=== PATIENT | female | born 1970 | race African-American/Black ===

== ENCOUNTER 2018-02-07 10:02 | Emergency (ER) | payer SELFPAY | END 2018-02-07 10:33 | disposition home or self-care (01) | LOC: BURERS 10:02 | DX: J06.9 Acute upper respiratory infection, unspecified (principal); I10 Essential (primary) hypertension; Z79.899 Other long term (current) drug therapy | CPT/HCPCS: 99283 ==

== ENCOUNTER 2019-08-10 13:48 | Outpatient (CLI) | payer OTHER ==
--- NOTE | 2019-08-10 14:30 | RAD ---
EXAM: 3 views of the lumbosacral spine HISTORY: Low back pain and left leg pain COMPARISON: None FINDINGS: 3 views of the lumbosacral spine shows normal height and alignment of the vertebral bodies and intervertebral discs without fracture or subluxation. No significant degenerative changes are seen. The sacroiliac joints are unremarkable. IMPRESSION: No significant lumbar spine abnormality.
== END 2019-08-10 13:49 | disposition home or self-care (01) ==
LOC: BURRAD 13:48
PROVIDERS: ATTEND Physician Assistant
DX: M54.31 Sciatica, right side (principal); M79.605 Pain in left leg; R29.898 Other symptoms and signs involving the musculoskeletal system
CPT/HCPCS: 72100

== ENCOUNTER 2019-12-20 19:57 | Emergency (ER) | payer OTHER ==
[2019-12-20] MEDS ORDERED: Aspirin Chewable 81 MG TAB ONE (20:18)
[2019-12-20 20:28] LABS: #Basophils 0.2 thou/uL (0.0-0.2); #Eosinphils 0.3 thou/uL (0.0-0.7); #Lymphocytes 3.2 thou/uL (1.20-3.40); #Monocytes 0.8 thou/uL (0.11-0.59); #Neutrophils 4.2 thou/uL (1.40-6.50); %Basophils 1.9 % (0.0-1.0); %Eosinophils 3.3 % (0.0-10.0); %Lymphocytes 37.1 % (21.0-51.0); %Monocytes 9.3 % (0.0-10.0); %Neutrophils 48.4 % (42.0-75.0); Hemoglobin 14.2 g/dL (12.0-16.0); Mean Corpuscular HGB CONC 30.3 g/dL (32.0-36.0); Mean Corpuscular Hemoglobin 28.3 pg (27.0-31.0); Mean Corpuscular Volume 93.4 fL (78.0-98.0); Mean Platelet Volume 8.7 fL (7.4-10.4); Platelet Count 167 thou/uL (130-400); RBC Distribution Width 14.4 % (11.5-14.5); Red Blood Cell (RBC) Count 5.02 mill/uL (4.20-5.40); White Blood Cell (WBC) Count 8.7 thou/uL (4.8-10.8)
[2019-12-20 20:47] LABS: ALT (SGPT) 21 U/L (8-55); AST (SGOT) 17 U/L (5-34); Alkaline Phosphatase 77 U/L (40-110); Anion Gap 16 mmol/L (10-20); BUN (Urea Nitrogen) 22 mg/dL (7.0-18.7); Bilirubin, Total Less than 0.2 mg/dL (0.2-1.2); Calc. Creatinine Clearance 0 mL/min (70-130); Carbon Dioxide 22 mmol/L (22-29); Chloride 107 mmol/L (98-107); Estimated GFR-MDRD 64; Globulin 3.6 g/dL (2.4-3.5); Glucose 93 mg/dL (70-105); Lipase 53 U/L (8-78); Potassium 4.2 mmol/L (3.5-5.1); Protein, Total 7.6 g/dL (6.0-8.3); Sodium 141 mmol/L (136-145)
[2019-12-20] MEDS ORDERED: Ondansetron ODT 4 MG TAB ONE (20:50)
[2019-12-20] MEDS ORDERED: Ketorolac Tromethamine 30 MG/ML VIAL ONE (21:27)
[2019-12-20] MEDS ORDERED: traMADol HCl 50 MG TAB ONE (21:27)
--- NOTE | 2019-12-21 07:44 | RAD ---
PORTABLE CHEST: DATE: 12/20/2019. FINDINGS: An AP portable film at 2018 is compared with a 10/26/2015 study. The portable technique and body habitus yield a low-sensitivity study. Allowing for this, the heart seems normal in size and the lungs are clear. No gross lobar infiltrate or effusion was seen. There is no vascular congestion or edema. IMPRESSION: No acute finding. POS: HOME
== END 2019-12-20 21:39 | disposition home or self-care (01) ==
LOC: BURERS 19:57
DX: R07.89 Other chest pain (principal); I10 Essential (primary) hypertension
CPT/HCPCS: 71045; 80053; 83690; 83880; 84484; 85025; 85379; 93005; 94760; 96374; J1885; Q0162

== ENCOUNTER → 2020-02-23 | Emergency (ER) | payer OTHER ==
[~2020-02-23] MED LIST: Aspirin 300 MG Suppository ONE; Aspirin Chewable 81 MG TAB ONE
[2020-02-23 16:17] LABS: Acetaminophen Less than 6.0 mcg/mL (10.0-30.0); Alcohol Less than 10 mg/dL (Less than 10); Salicylate Less than 8.0 mg/dL (15.0-30.0)
[2020-02-23 16:17] LABS: Bilirubin Negative (Negative); Blood, Urine Trace (Negative); Clarity Clear (Clear); Glucose, Urine (Dipstick) Negative (Negative); Ketone, Urine Negative (Negative); Leukocyte Negative (Negative); Nitrite Negative (Negative); Protein, Urine (Dipstick) Negative (Neg-Trace)
[2020-02-23 16:20] LABS: Bacteria/HPF None Seen HPF (None Seen); RBC/HPF 0-3 HPF (0-3); Squamous Epithelial 0-3 HPF (0-3); WBC/HPF 0-3 HPF (0-3)
[2020-02-23 16:21] LABS: ALT (SGPT) 16 U/L (8-55); AST (SGOT) 15 U/L (5-34); Albumin 3.9 g/dL (3.5-5.0); Alkaline Phosphatase 77 U/L (40-110); Anion Gap 13 mmol/L (10-20); BUN (Urea Nitrogen) 17 mg/dL (7.0-18.7); Bilirubin, Total Less than 0.2 mg/dL (0.2-1.2); CK (CPK) 190 U/L (29-168); Calc. Creatinine Clearance 0 mL/min (70-130); Calcium 9.6 mg/dL (7.8-10.44); Carbon Dioxide 27 mmol/L (22-29); Chloride 105 mmol/L (98-107); Estimated GFR-MDRD 69; Globulin 3.5 g/dL (2.4-3.5); Glucose 95 mg/dL (70-105); Protein, Total 7.4 g/dL (6.0-8.3); Sodium 141 mmol/L (136-145)
[2020-02-23 16:24] LABS: Band 1 % (5-11); Eosinophils 3 % (0-10); Hemoglobin 14.1 g/dL (12.0-16.0); Lymphocytes 48 % (21-51); MDiff Complete? YES; Mean Corpuscular HGB CONC 29.3 g/dL (32.0-36.0); Mean Corpuscular Hemoglobin 27.9 pg (27.0-31.0); Mean Platelet Volume 8.7 fL (7.4-10.4); Monocytes 6 % (0-10); Neutrophil 41 % (42-75); Platelet Count 187 thou/uL (130-400); RBC Distribution Width 13.8 % (11.5-14.5); Red Blood Cell (RBC) Count 5.05 mill/uL (4.20-5.40); White Blood Cell (WBC) Count 6.2 thou/uL (4.8-10.8)
[2020-02-23 16:28] LABS: Amphetamine Not Detected (NotDetected); Barbiturates Screen Not Detected (NotDetected); Benzodiazepine Screen Not Detected (NotDetected); Cocaine Metabolite Screen Not Detected (NotDetected); Medtox Control Line Valid? VALID (VALID); Methadone Not Detected (NotDetected); Methamphetamine Not Detected (NotDetected); Opiate Screen Not Detected (NotDetected); Oxycodone Screen Not Detected (NotDetected); Phencyclidine (PCP) Not Detected (NotDetected); THC/Cannabinoid Screen Not Detected (NotDetected); Tricyclic Screen Not Detected (NotDetected)
--- NOTE | 2020-02-23 16:35 | RAD ---
PORTABLE CHEST: 02/23/20 An AP portable film at 1555 is compared with a 12/20/19 study. There has been no adverse interval change. The heart is normal in size. The lungs are clear within th e limitations of this study. It is a mainly expiratory view, so the lung bases are not seen well. The re is no obvious congestion or pleural effusion. IMPRESSION: Reduced sensitivity study showing no acute findings. POS: HOME
--- NOTE | 2020-02-23 16:39 | CT ---
CT OF THE BRAIN WITHOUT CONTRAST 02/23/20 COMPARISON: Comparison is made with the 09/30/12 study. There has been on adverse interval change. The ventricles are normal in size with no shift. There is no sign of acute stroke, mass or edema. The mccormack-white distention is good. The visible paranasal sinu ses are clear. The mastoid air cells are clear. There has probably been old surgery in the right mast oid region. IMPRESSION: No acute intracranial findings. Preliminary report called to Dr. Sullivan at 1625 on 02/23/20. POS: HOME
== END ==
LOC: BURERS 15:22
DX: R53.1 Weakness (principal); I10 Essential (primary) hypertension; Z79.899 Other long term (current) drug therapy
CPT/HCPCS: 36415; 70450; 71045; 80053; 80306; 80307; 81003; 81015; 82550; 84484; 85025; 93005